=== PATIENT | female | born 1945 | race Caucasian/White ===

== ENCOUNTER 2019-06-10 14:07 | Outpatient (RCR) | payer SELFPAY | END 2019-06-19 23:59 | LOC: NS 14:07 | PROVIDERS: Visit Provider Student in an Organized Health Care Education/Training Program | DX: Z71.3 Dietary counseling and surveillance (principal); I10 Essential (primary) hypertension; R73.01 Impaired fasting glucose; E78.5 Hyperlipidemia, unspecified | CPT/HCPCS: 99201; G0463 ==

== ENCOUNTER 2019-07-02 15:30 | Outpatient (RCR) | payer SELFPAY | END 2019-07-19 23:59 | LOC: NS 15:30 | PROVIDERS: Visit Provider Student in an Organized Health Care Education/Training Program | DX: Z71.3 Dietary counseling and surveillance (principal); I10 Essential (primary) hypertension; R73.01 Impaired fasting glucose; E78.5 Hyperlipidemia, unspecified | CPT/HCPCS: 97803 ==

== ENCOUNTER 2019-08-07 11:30 | Outpatient (RCR) | payer SELFPAY | END 2019-08-19 23:59 | LOC: NS 11:30 | PROVIDERS: Visit Provider Student in an Organized Health Care Education/Training Program | DX: Z71.3 Dietary counseling and surveillance (principal); I10 Essential (primary) hypertension; R73.01 Impaired fasting glucose; E78.5 Hyperlipidemia, unspecified | CPT/HCPCS: 97803 ==

== ENCOUNTER 2019-09-08 10:30 | Outpatient (RCR) | payer SELFPAY | END 2019-09-19 23:59 | LOC: NS 10:30 | PROVIDERS: Visit Provider Student in an Organized Health Care Education/Training Program | DX: Z71.3 Dietary counseling and surveillance (principal); I10 Essential (primary) hypertension; R73.01 Impaired fasting glucose; E78.5 Hyperlipidemia, unspecified ==

== ENCOUNTER 2019-10-08 14:00 | Outpatient (RCR) | payer SELFPAY | END 2019-10-18 23:59 | LOC: NS 14:00 | PROVIDERS: Visit Provider Student in an Organized Health Care Education/Training Program | DX: Z71.3 Dietary counseling and surveillance (principal); I10 Essential (primary) hypertension; R73.01 Impaired fasting glucose; E78.5 Hyperlipidemia, unspecified ==

== ENCOUNTER 2019-11-11 13:00 | Outpatient (RCR) | payer SELFPAY | END 2019-11-18 23:59 | LOC: NS 13:00 | PROVIDERS: Visit Provider Student in an Organized Health Care Education/Training Program | DX: Z71.3 Dietary counseling and surveillance (principal); I10 Essential (primary) hypertension; R73.01 Impaired fasting glucose; E78.5 Hyperlipidemia, unspecified ==

== ENCOUNTER 2022-02-10 09:30 | Outpatient (RCR) | payer MEDICARE, SELFPAY ==
--- NOTE | 2022-01-12 10:09 | HP.PTEVAL_ITS ---
Patient's Visit Information ALEXIS NUÑEZ is a 76 year old F referred to Physical Therapy by Dr. Juni Britton MD with a diagnosis of Bilateral primary osteoarthritis of knee, M17.0. Date of Evaluation: 01/12/22 Physical Therapist: Byron York - Visit Plan Frequency: 2x /Week Duration: 6 Weeks Plan: Continue with aquatic physical therapy to work on improving LE strength prior to her left knee replacement on 02-14. Pt. may also do land therapy if pool therapy is not available focusing on improving knee ROM, LE strength, and balance. Will transfer care to another PT at this time. - Subjective Pt. is a 76 y.o. female who has been having bilateral knee pain since 2004 with no specific injury and has just gotten worse in the last few years. Pt. PLOF includes no history of knee pain before this. She had x-ray of her both of her knees which showed osteoarthritis and effusion. Pt. is scheduled to have TKR for her left knee on 02-14-22. Pt. normally uses a cane which she has been using for about a year or two. Pt. denies any falls in the last six months. She reports that she does get numbness in her right leg. Pt. has difficulty with standing/walking longer than 10 minutes, squatting, ascending/descending stairs, walking on uneven ground, kneeling, housework, and yard work. Pt. is retired and was a elementary math tutor previously. Her goal with physical therapy is to strengthen her legs before surgery. She has had previous physical therapy for her right shoulder. Pt. denies any pain currently, at worst 8/10 and describes the pain as achy, dull, and sharp. Pt. takes Ibuprofen for pain. Her PMH includes leaky valve, gall bladder removed, and tubal ligation. Pt. lives with her in a two story home with two steps to enter. Pt. hobbies include quilting, sewing, and baking. - Objective Palpation- No tenderness to palpation. Left knee AROM flexion [98 degrees ], extension [-3 degrees ]. Right knee AROM flexion [98 degrees ], extension [-8 degrees]. Left LE strength hip flexion [4+/5 ], abduction [4/5 ], adduction [4+/5 ], extension [4/5 ], knee flexion [4+/5 ], knee extension [4+/5 ], ankle DF [5/5], PF [5/5 ]. Right LE strength hip flexion [4+/5 ], abduction [4/5 ], adduction [4+/5 ], extension [4/5], knee flexion [4+/5 ], knee extension [4+/5 ], ankle DF [5/5 ], PF [5/5]. Tandem stance right [26 secs], left [3 secs ]. SLS right [1 sec ], left [1 sec ]. 30 sec sit to stands- 14 times with no arm assist. Gait- Pt. ambulates with no noticeable gait deviations - Balance/Special Test Scores Lower Extremity Functional Score: 14 - Goals Goal 1:: Pt. will improve bilateral knee AROM flexion > 100 degrees and extension < 5 degrees in order to improve gait mechanics. Goal Time Frame: 4-6 Weeks Goal 2:: Pt. will be able to stand/walk at least 20 minutes with bilateral knee pain < 3/10. Goal Time Frame: 4-6 Weeks Goal 3:: Pt. will be able to ascend/descend a flight of stairs with alternating step pattern and unilateral handrail. Goal Time Frame: 4-6 Weeks Goal 4:: Pt. will improve tandem stance > 30 secs in order to improve stability and balance. Goal Time Frame: 4-6 Weeks Goal 5:: Pt. will rate bilateral knee pain at worst at 3/10 with ADL's. Goal 6:: Pt. will improve LEFS disability less than 60% in order to improve ADL's. Goal Time Frame: 4-6 Weeks - Rehabilitation Potential Physical Therapy Diagnosis: Decreased bilateral knee ROM, LE strength, balance, and pain Rehabilitation Potential: Good - Anticipated Interventions Thank you for the opportunity to evaluate your patient. For Medicare and Medicare HMO plans, please review the plan of care and approve it. It will need to be FAXED BACK to us at [phone] for Medicare purposes. For Medicare only, by signing this I certify the plan of care. Please let me know if there are questions or concerns regarding this plan of care. Physician Signature: Date:
--- NOTE | 2022-02-10 10:30 | HP.PTDCSUM ---
It has been my pleasure to treat ALEXIS NUÑEZ referred by Dr. Juni Britton MD, with the diagnosis of Bilateral primary osteoarthritis of knee, M17.0 for a total of 9 visit(s). Discharge Date: 02/10/22 Please see the following information for a summary of their discharge status. Subjective: Pt is having TKR on the L on Sunday. Pt wants some movement back. Pt will be doing PT after surgery. Pt aches and is sore after AT but she thinks that she is improving in strength. RLE Pain Intensity (Out of 10): 0 LLE Pain Intensity (Out of 10): 0 Lumbar Spine Pain Intensity (Out of 10): 2 % Improvement: 40 Objective/Function: Stairs: up and down recip with 2 hand rails with heistancey with bending B knees. Pt could not balance in tandem stance Goal 1:: Pt. will improve bilateral knee AROM flexion > 100 degrees and extension < 5 degrees in order to improve gait mechanics. Goal Progress: Progressing Goal 2:: Pt. will be able to stand/walk at least 20 minutes with bilateral knee pain < 3/10. Goal Progress: Progressing Goal 3:: Pt. will be able to ascend/descend a flight of stairs with alternating step pattern and unilateral handrail. Goal 4:: Pt. will improve tandem stance > 30 secs in order to improve stability and balance. Goal 5:: Pt. will rate bilateral knee pain at worst at 3/10 with ADL's. Goal Progress: Goal Met Goal 6:: Pt. will improve LEFS disability less than 60% in order to improve ADL's. Plan: DC PT Discharge Comments: DC PT to HEP and surgery If there are questions or concerns regarding this patient's physical therapy, please feel free to call me at [phone]. Thank you for the referral of this patient. Sincerely, Meghna Molina, MPT Balance/Gait/Functional tests - Balance/Special Test Scores Lower Extremity Functional Score: 23
== END 2022-02-10 19:00 | disposition home or self-care (01) ==
LOC: PT 09:30
PROVIDERS: PCP Student in an Organized Health Care Education/Training Program; Referring Provider Specialist; Visit Provider Specialist
DX: M17.0 Bilateral primary osteoarthritis of knee (principal); M25.461 Effusion, right knee; M25.462 Effusion, left knee
CPT/HCPCS: 97110; 97113; 97162; 97530

== ENCOUNTER → 2022-07-05 | Outpatient (CLI) | payer MEDICARE, SELFPAY ==
--- NOTE | 2022-07-05 12:54 | VDLE_ITS ---
Reason For Study: Pain RIGHT LEFT GSV is normal. CFV is compressible, spontaneous, phasic, CFV is compressible, spontaneous, phasic, competent, and demonstrates normal competent and demonstrates normal augmentation. augmentation. FV is compressible, spontaneous, phasic, competent and demonstrates normal augmentation. POP V is compressible, spontaneous, phasic, competent and demonstrates normal augmentation. T/P Trunk is compressible. PTV is compressible. RT PerV is compressible. Procedure This is a venous duplex using B-mode, color flow and spectral Doppler. Exam performed in department. A preliminary report was called and/or faxed to [facility]. VL/Venous Duplex US, Unilateral Interpretation Summary Deep veins of the right lower extremity are patent and compressible segmentally . There is no evidence of right lower extremity deep vein thrombosis. Valvular competence yossi ears intact within the proximal deep venous system on the right . The right great saphenous vein a ppears patent and compressible segmentally. Ordering Physician: Juni Britton Referring Physician: Sanford Duenas Performed By: Nichole Norman RVT
== END | disposition home or self-care (01) ==
LOC: CVS 12:53
PROVIDERS: PCP Student in an Organized Health Care Education/Training Program; Referring Provider Specialist; Visit Provider Specialist
DX: M79.661 Pain in right lower leg (principal)
CPT/HCPCS: 93971